=== PATIENT | female | born 1950 | race Caucasian/White ===

== ENCOUNTER → 2018-08-14 | Outpatient (CLI) | payer OTHER | LOC: HYPER 07:04 | DX: T81.49XA Infection following a procedure, other surgical site, initial encounter (principal); L02.211 Cutaneous abscess of abdominal wall; A49.02 Methicillin resistant Staphylococcus aureus infection, unspecified site; J45.909 Unspecified asthma, uncomplicated; Z79.82 Long term (current) use of aspirin; Y92.89 Other specified places as the place of occurrence of the external cause; Y83.8 Other surgical procedures as the cause of abnormal reaction of the patient, or of later complication, without mention of misadventure at the time of the procedure ==

== ENCOUNTER → 2018-09-08 | Outpatient (CLI) | payer OTHER | LOC: HYPER 07:15 | DX: T81.49XA Infection following a procedure, other surgical site, initial encounter (principal); A49.02 Methicillin resistant Staphylococcus aureus infection, unspecified site; A49.8 Other bacterial infections of unspecified site; J45.909 Unspecified asthma, uncomplicated; Z79.82 Long term (current) use of aspirin; Y92.89 Other specified places as the place of occurrence of the external cause; Y83.8 Other surgical procedures as the cause of abnormal reaction of the patient, or of later complication, without mention of misadventure at the time of the procedure ==

== ENCOUNTER → 2018-10-09 | Outpatient (CLI) | payer OTHER | LOC: HYPER 05:32 | DX: T81.49XD Infection following a procedure, other surgical site, subsequent encounter (principal); L02.211 Cutaneous abscess of abdominal wall; A49.02 Methicillin resistant Staphylococcus aureus infection, unspecified site; J45.909 Unspecified asthma, uncomplicated; Y83.8 Other surgical procedures as the cause of abnormal reaction of the patient, or of later complication, without mention of misadventure at the time of the procedure ==

== ENCOUNTER → 2018-11-06 | Outpatient (CLI) | payer OTHER | LOC: HYPER 07:23 | DX: T81.49XD Infection following a procedure, other surgical site, subsequent encounter (principal); L02.211 Cutaneous abscess of abdominal wall; A49.02 Methicillin resistant Staphylococcus aureus infection, unspecified site; A49.8 Other bacterial infections of unspecified site; J45.909 Unspecified asthma, uncomplicated; Z22.322 Carrier or suspected carrier of Methicillin resistant Staphylococcus aureus; Y83.8 Other surgical procedures as the cause of abnormal reaction of the patient, or of later complication, without mention of misadventure at the time of the procedure ==

== ENCOUNTER → 2018-12-11 | Outpatient (CLI) | payer OTHER | LOC: HYPER 12-04 12:26 | DX: T81.49XD Infection following a procedure, other surgical site, subsequent encounter (principal); L02.211 Cutaneous abscess of abdominal wall; A49.02 Methicillin resistant Staphylococcus aureus infection, unspecified site; A49.8 Other bacterial infections of unspecified site; J45.909 Unspecified asthma, uncomplicated; Y83.8 Other surgical procedures as the cause of abnormal reaction of the patient, or of later complication, without mention of misadventure at the time of the procedure ==

== ENCOUNTER → 2019-01-22 | Outpatient (CLI) | payer OTHER | LOC: HYPER 06:49 | DX: T81.49XD Infection following a procedure, other surgical site, subsequent encounter (principal); L02.211 Cutaneous abscess of abdominal wall; A49.02 Methicillin resistant Staphylococcus aureus infection, unspecified site; A49.8 Other bacterial infections of unspecified site; J45.909 Unspecified asthma, uncomplicated; Z22.322 Carrier or suspected carrier of Methicillin resistant Staphylococcus aureus; Y83.8 Other surgical procedures as the cause of abnormal reaction of the patient, or of later complication, without mention of misadventure at the time of the procedure ==

== ENCOUNTER → 2019-02-19 | Outpatient (CLI) | payer OTHER | LOC: HYPER 06:43 | DX: T81.49XD Infection following a procedure, other surgical site, subsequent encounter (principal); L02.211 Cutaneous abscess of abdominal wall; A49.8 Other bacterial infections of unspecified site; J45.909 Unspecified asthma, uncomplicated; Z49.02 Encounter for fitting and adjustment of peritoneal dialysis catheter; Z22.322 Carrier or suspected carrier of Methicillin resistant Staphylococcus aureus; Y83.8 Other surgical procedures as the cause of abnormal reaction of the patient, or of later complication, without mention of misadventure at the time of the procedure ==

== ENCOUNTER → 2019-03-19 | Outpatient (CLI) | payer OTHER | LOC: HYPER 06:48 | DX: T81.49XD Infection following a procedure, other surgical site, subsequent encounter (principal); L02.211 Cutaneous abscess of abdominal wall; A49.02 Methicillin resistant Staphylococcus aureus infection, unspecified site; A49.8 Other bacterial infections of unspecified site; J45.909 Unspecified asthma, uncomplicated; Z22.322 Carrier or suspected carrier of Methicillin resistant Staphylococcus aureus; Y83.8 Other surgical procedures as the cause of abnormal reaction of the patient, or of later complication, without mention of misadventure at the time of the procedure ==

== ENCOUNTER → 2019-04-16 | Outpatient (CLI) | payer OTHER | LOC: HYPER 06:22 | DX: T81.49XD Infection following a procedure, other surgical site, subsequent encounter (principal); L02.211 Cutaneous abscess of abdominal wall; A49.8 Other bacterial infections of unspecified site; J45.909 Unspecified asthma, uncomplicated; Z49.02 Encounter for fitting and adjustment of peritoneal dialysis catheter; Z22.322 Carrier or suspected carrier of Methicillin resistant Staphylococcus aureus; Y83.8 Other surgical procedures as the cause of abnormal reaction of the patient, or of later complication, without mention of misadventure at the time of the procedure ==

== ENCOUNTER → 2019-05-21 | Outpatient (CLI) | payer OTHER | LOC: HYPER 05-14 16:24 | DX: T81.49XD Infection following a procedure, other surgical site, subsequent encounter (principal); L02.211 Cutaneous abscess of abdominal wall; A49.8 Other bacterial infections of unspecified site; J45.909 Unspecified asthma, uncomplicated; Z22.322 Carrier or suspected carrier of Methicillin resistant Staphylococcus aureus; Z49.02 Encounter for fitting and adjustment of peritoneal dialysis catheter; Y83.8 Other surgical procedures as the cause of abnormal reaction of the patient, or of later complication, without mention of misadventure at the time of the procedure ==

== ENCOUNTER → 2019-06-18 | Outpatient (CLI) | payer OTHER | LOC: HYPER 06:41 | DX: T81.49XD Infection following a procedure, other surgical site, subsequent encounter (principal); L02.211 Cutaneous abscess of abdominal wall; A49.02 Methicillin resistant Staphylococcus aureus infection, unspecified site; A49.8 Other bacterial infections of unspecified site; J45.909 Unspecified asthma, uncomplicated; Z22.322 Carrier or suspected carrier of Methicillin resistant Staphylococcus aureus; Y83.8 Other surgical procedures as the cause of abnormal reaction of the patient, or of later complication, without mention of misadventure at the time of the procedure ==

== ENCOUNTER → 2019-08-03 | Outpatient (CLI) | payer OTHER | LOC: HYPER 09:15 | DX: T81.49XD Infection following a procedure, other surgical site, subsequent encounter (principal); L02.211 Cutaneous abscess of abdominal wall; A49.8 Other bacterial infections of unspecified site; J45.909 Unspecified asthma, uncomplicated; Z49.02 Encounter for fitting and adjustment of peritoneal dialysis catheter; Z22.322 Carrier or suspected carrier of Methicillin resistant Staphylococcus aureus; Y83.8 Other surgical procedures as the cause of abnormal reaction of the patient, or of later complication, without mention of misadventure at the time of the procedure ==

== ENCOUNTER → 2019-08-25 | Outpatient (CLI) | payer OTHER | LOC: HYPER 08:00 | DX: T81.49XD Infection following a procedure, other surgical site, subsequent encounter (principal); L02.211 Cutaneous abscess of abdominal wall; L84 Corns and callosities; A49.8 Other bacterial infections of unspecified site; J45.909 Unspecified asthma, uncomplicated; Z49.02 Encounter for fitting and adjustment of peritoneal dialysis catheter; Z22.322 Carrier or suspected carrier of Methicillin resistant Staphylococcus aureus; Y83.8 Other surgical procedures as the cause of abnormal reaction of the patient, or of later complication, without mention of misadventure at the time of the procedure ==

== ENCOUNTER → 2019-10-06 | Outpatient (CLI) | payer OTHER | LOC: HYPER 08:36 | DX: T81.49XD Infection following a procedure, other surgical site, subsequent encounter (principal); A49.02 Methicillin resistant Staphylococcus aureus infection, unspecified site; A49.8 Other bacterial infections of unspecified site; L02.211 Cutaneous abscess of abdominal wall; L84 Corns and callosities; J45.909 Unspecified asthma, uncomplicated; Z22.322 Carrier or suspected carrier of Methicillin resistant Staphylococcus aureus; Y83.8 Other surgical procedures as the cause of abnormal reaction of the patient, or of later complication, without mention of misadventure at the time of the procedure ==

== ENCOUNTER → 2019-11-11 | Outpatient (CLI) | payer OTHER | LOC: HYPER 08:11 | DX: T81.49XD Infection following a procedure, other surgical site, subsequent encounter (principal); S31.109D Unspecified open wound of abdominal wall, unspecified quadrant without penetration into peritoneal cavity, subsequent encounter; B95.62 Methicillin resistant Staphylococcus aureus infection as the cause of diseases classified elsewhere; J45.909 Unspecified asthma, uncomplicated; Z79.82 Long term (current) use of aspirin; Y83.8 Other surgical procedures as the cause of abnormal reaction of the patient, or of later complication, without mention of misadventure at the time of the procedure; X58.XXXD Exposure to other specified factors, subsequent encounter ==

== ENCOUNTER → 2019-12-16 | Outpatient (CLI) | payer OTHER | LOC: HYPER 08:39 | DX: T81.49XD Infection following a procedure, other surgical site, subsequent encounter (principal); L02.211 Cutaneous abscess of abdominal wall; L84 Corns and callosities; A49.02 Methicillin resistant Staphylococcus aureus infection, unspecified site; A49.8 Other bacterial infections of unspecified site; J45.909 Unspecified asthma, uncomplicated; Z22.322 Carrier or suspected carrier of Methicillin resistant Staphylococcus aureus; Y83.8 Other surgical procedures as the cause of abnormal reaction of the patient, or of later complication, without mention of misadventure at the time of the procedure ==

== ENCOUNTER → 2020-03-16 | Outpatient (CLI) | payer OTHER | LOC: HYPER 07:44 | PROVIDERS: ATTEND Emergency Medicine | DX: T81.49XD Infection following a procedure, other surgical site, subsequent encounter (principal); L02.211 Cutaneous abscess of abdominal wall; L84 Corns and callosities; A49.02 Methicillin resistant Staphylococcus aureus infection, unspecified site; A49.8 Other bacterial infections of unspecified site; J45.909 Unspecified asthma, uncomplicated; Z22.322 Carrier or suspected carrier of Methicillin resistant Staphylococcus aureus; Y83.8 Other surgical procedures as the cause of abnormal reaction of the patient, or of later complication, without mention of misadventure at the time of the procedure ==